=== PATIENT | female | born 1985 | race Caucasian/White ===

== ENCOUNTER 2017-09-05 07:48 | Inpatient (IN) ==
--- NOTE | 2017-09-05 07:06 | OB/GYN History & Physical ---
Date of Encounter: 09/05/17 Time of Encounter: 07:23 Assessment and Plan (1) 37 weeks gestation of Current visit: Yes Status: Acute (2) Spontaneous rupture of membranes Current visit: Yes Status: Acute Admit for expectant management, 6cm/90/-1. GBS unknown, negative by risk factors UDS Attempt to obtain records from [facility] labs. Anticipate precipitous vaginal delivery. (3) Active labor Current visit: Yes Status: Acute (4) care insufficient Current visit: Yes Status: Acute Qualifiers: Trimester: third trimester Qualified Code(s): O09.33 - Supervision of with insufficient care, third trimester (5) Opiate abuse, continuous Current visit: Yes Status: Acute History of Present Illness Chief complaint: contractions HPI: Ms. Villa is a 32 year old female presenting at 37w4d with c/o contractions that started at 0500 this am. She reports some leaking fluid since 0500 as well. She has had some care at [facility] but she hasn't been seen in about 2 months. She reports she did have an ultrasound and was told everything was normal and it's a girl. She denies being told that she has a placenta previa. She admits to subutex use that is prescribed. Last use of other substance was heroin 4 years ago. SHe reports Hepatitis C but no other medical problems, surgeries, sexually transmitted infections, tobacco use, or other substance abuse. Past Med Surg Social Fam HX - Past Medical History Medical history: seizures Psychiatric history: no psych history - Social History Smoking Status: Current every day smoker Smokeless Tobacco Status: No Alcohol use: none Drug use: none Obstetrical History - Pregnancies : 3 Para: 2 Livin - History/Complications History/Complications: Denies any or delivery complications, children are 7 and 9 Medications and Allergies Amoxicillin/Clavulanate [Augmentin] 875 mg PO BIDWM #14 tablet 07/26/16 [Rx] 3 Allergy/AdvReac Type Severity Reaction Status Date / Time No Known Allergies Allergy Verified 07/26/16 15:17 Review of System OB All systems PM: reviewed and no additional remarkable complaints except as stated Exam - Constitutional Constitutional: well developed, well nourished, severe distress, thin - HEENT HEENT: Mucus Membranes Moist - Lungs Respiratory exam: CTAB - Cardiovascular Cardiovascular exam: RRR - Abdomen Abdomen: Present: gravid, non tender - Extremities Extremities exam: normal inspection - Vulva Vulva: bilateral: normal - Cervix Dilation: 6 Effacement: 90 Station: -1 - Anus/Rectum Anus/Rectum: Present: normal perianal skin Results All other labs normal. - VTE Reasons for not Prescribing Prophylaxis: Treatment not Indicated - Low risk for VTE
[2017-09-05 07:14] LABS: Basophils # 0.1 K/mcL (0.0-0.2); Basophils % 0.3 %; Eosinophils # 0.2 K/mcL (0.0-0.6); Eosinophils % 0.9 %; Hematocrit 38.8 % (35.3-44.9); Hemoglobin 13.3 g/dL (11.5-15.4); Immature Granulocytes % 1.5 % (0-4); Lymphocytes # 2.2 K/mcL (0.6-4.6); Lymphocytes % 12.6 %; Mean Corpuscular HGB Conc 34.3 g/dL (31.6-35.5); Mean Corpuscular Hemoglobin 29.9 pg (28.0-33.3); Mean Corpuscular Volume 87.2 fL (83.0-100.0); Mean Platelet Volume 11.5 fL (9.4-12.4); Neutrophils # 13.6 K/mcL (1.6-8.9); Nucleated Red Blood Cells 0.2 /100 WBC (0); Platelet Count 252 K/mcL (140-400); Red Blood Count 4.45 M/mcL (3.82-4.97); Segmented Neutrophils % 78.7 %
[~2017-09-05 07:48] MED LIST: *HR* Oxytocin 10 UNIT/ML VIAL IM ONE; Famotidine 20 MG/2 ML VIAL IVP PRN; Lidocaine -MPF 1% 2 ML VIAL ONE; Metoclopramide 10 MG/2 ML VIAL IVP PRN; Naloxone 0.4 MG/ML INJ IVP PRN; Penicillin G Potassium 5,000,000 UNIT in 0.9 % Sodium Chloride Mini Bag 100 ML IVPB ONE; Ringers Solution, Lactated 1,000 ML IVC SCH
[2017-09-05 07:56] LABS: Amphetamine Screen,Urine Negative ng/mL (Cutoff=1000); Barbiturate Screen,Urine Negative ng/mL (Cutoff=200); Benzodiazepines Screen,Urine Negative ng/mL (Cutoff=200); Cannabinoid Screen,Urine Negative ng/mL (Cutoff = 50); Cocaine Screen,Urine Negative ng/mL (Cutoff= 300); Opiate Screen,Urine Negative ng/mL (Cutoff=300); Phencyclidine Screen,Urine Negative ng/mL (Cutoff=25)
[2017-09-05] MEDS ORDERED: Penicillin G Potassium 2,500,000 UNIT in D5% in Water 100 ML IVPB SCH ×2 (08:00→12:00)
[2017-09-05] MEDS ORDERED: Bupivacaine-MPF 0.25% 10 ML VIAL EP ONE (08:14)
[2017-09-05] MEDS ORDERED: EPHEDrine 50 MG/ML VIAL IVP PRN (08:14)
[2017-09-05] MEDS ORDERED: *HR* FentaNYL (PF) 100 MCG/2 ML VIAL EP ONE (08:14)
[2017-09-05] MEDS ORDERED: Ondansetron 4 MG/2 ML VIAL IVP PRN (08:14)
[2017-09-05] MEDS ORDERED: Naloxone 0.4 MG/ML INJ IVP PRN ×2 (08:14→13:15)
[2017-09-05] MEDS ORDERED: Epidural Premix (fent/bupiv) 110 ML EP SCH (08:15)
--- NOTE | 2017-09-05 08:19 | Anesthesia Evaluation PreOp ---
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 States she "doesn't have seizures during ".) Other Medical History: Other (Hx herpes, HEP C, Heroin use, subutex) Anesthesia History: No Prior Anesthetic Complications, Past Anesthesia (no past history of anesthesia, no family history of anesthesia complications.) : Yes Alcohol Use: none Drug use: none Medications and Allergies Amoxicillin/Clavulanate [Augmentin] 875 mg PO BIDWM #14 tablet 07/26/16 [Rx] 3 Allergy/AdvReac Type Severity Reaction Status Date / Time No Known Allergies Allergy Verified 07/26/16 15:17 - Meds/Allergy Pre-op Review Medications Reviewed: Yes Allergies Reviewed: Yes Beta Blockers on Current Med List: No Anesthesia Results - Labs 09/05/17 07:00 Anesthesia Exam BP 137/89 P 89 R 16 T 36.4 Height: 5'8" Weight: 79kg NPO (# of Hours): 9 Pain Scale: 10 Pain Scale Used: Numeric (1 - 10) - HEENT Pupil (Motor): Pupils equal Mallampati: II Teeth: Normal Oral Opening: Greater than 3 - COMPUTER TAPE LIBRARIAN LOC: Oriented COMPUTER TAPE LIBRARIAN Motor: Normal RUE, Normal LUE, Normal RLE, Normal LLE, Normal Face COMPUTER TAPE LIBRARIAN Sensory: Normal: RUE, LUE, RLE, LLE, Face - Cardiac Rhythm: Regular Murmur: None JVD: No Carotid Bruit: No - Pulmonary Breath Sounds: bilateral Clear Respiratory Effort: Symmetrical Anesthesia Assess/Plan ASA Score: 2 Modified Sancho Scale for Level of Consciousness: Cooperative, oriented, and tranquil Anesthetic Plan: Regional Autologous Blood: No Monitoring Plan: Standard Monitors Recovery Plan: Other
[2017-09-05 08:28] LABS: Alanine Aminotransferase 31 Units/L (7-52); BUN/Creatinine Ratio 15 (6-26); Blood Urea Nitrogen 11 mg/dL (6-20); Lactate Dehydrogenase 388 Units/L (140-271); Uric Acid 6.6 mg/dL (2.3-7.6); eGFR For African Americans > 60 (> 60); eGFR For Non-African Americans > 60 (> 60)
[2017-09-05] MEDS ORDERED: Epidural Premix (fent/bupiv) 110 ML EP ONE (08:29)
[2017-09-05] MEDS ORDERED: Bupivacaine-MPF 0.25% 10 ML VIAL ONE (08:29)
[2017-09-05] MEDS ORDERED: *HR* FentaNYL (PF) 100 MCG/2 ML VIAL ONE (08:30)
[2017-09-05 08:39] LABS: HIV-1&2 Antibody & p24 Ag Nonreactive (Nonreactive); Hepatitis B Surface Antigen Nonreactive (Nonreactive)
--- NOTE | 2017-09-05 09:36 | Anesthesia Procedures ---
Date of Encounter: 09/05/17 Time of Encounter: 09:34 Procedures: Anesthesia - Epidural/Spinal Patient ID/Chart reviewed: Yes Patient examined: Yes OB Eval: Gestational age: 39 OB Eval: : 3 OB Eval: Hx Para: 2 OB Eval: Dilated at (cm): 8 OB Eval: Contractions: Non-stressed pattern Consent Obtained: Yes Supplemental Oxygen: None/Room Air Site Prep: Aseptic Technique, Sterile prep and drape, Povidone-Iodine 1% Patient position: upright Local Anesthetic: Lidocaine 1% Amount of Local Anesthetic used: 3 Touhy Needle Gauge: 18 Touhy Needle Depth (cm): 6 Catheter Depth at Skin (cm): 15 Test Dose (1.5% Lido + Epi): Volume given (mls): 3 Test Dose Result: Negative Loading Dose: 0.25% Marcaine (mls): 10 Loading Dose: Fentanyl (mcg): 100 Loading Dose Administered: Thru Catheter Infusion Med: 0.125% Bupivacaine w/ 2 mcg/ml Fentanyl Infusion Rate (mls/hr): 15 Interspace Used: L4-L5 Loss of Resistance (PRATEEK): Yes Blood: No CSF: No Paresthesia: No Procedure: SAJAN placed in upright position 1st pass without any immediate noted complications. VSS Vitals + FHT's: 0916 BP 134/82 P 81 R22 0928 BP 130/82 P 67 R 18 - Nerve Block Allergies/Adv Reactions: NKA Checklist: Correct Patient Identifier, Correct procedure, History checked
[2017-09-05] MEDS ORDERED: Oxytocin 20 units/ LR 1000 mL 20 UNIT/1,000 ML BAG IVC ONE (10:41)
[2017-09-05 10:58] LABS: Varicella Zoster IgG Antibody Positive
[2017-09-05 10:59] LABS: Rubella IgG Antibody POSITIVE (POSITIVE)
--- NOTE | 2017-09-05 11:03 | OB/GYN Procedure Note ---
Delivery - Delivery Date: 09/05/17 Provider: Apple Stewart (Luis Adan DO, PGY-1) Intrapartum events: meconium (terminal) Delivery induction: none Delivery monitor: external FHT, external uterine Anesthesia: epidural Estimated Blood Loss: 250 - Infant (s) A Infant Delivery Date: 09/05/17 Infant Delivery Time: 10:36 Presentation: vertex Position: KELSIE Route of delivery: Gender: Female Viability: Viable Weight Gram: 2.98 kg at 1 minute: 8 at 5 mins: 9 Shoulder Dystocia: not encountered Specimens collected: cord blood Placenta: spontaneous - Repair Episiotomy: none Laceration Description: Periurethral (hemostatic) - Complications Delivery complications: meconium (terminal meconium) Delivery comments: of vigorous viable female infant in the KELSIE position at 1036. Right compound hand during delivery, but no complications delivering shoulders. No nuchal cord. No shoulder dystocia. Terminal meconium. Infant placed on mom's abdomen. Apgars 8/9 at 1 and 5 minutes. Cord double clamped and cut after pulsations ceased. Placenta delivered spontaneously at 1041 appears grossly intact. 3 vessel cord. Upon peritoneal inspection, hemostatic periurethral lacerations present. Pericare instructions given to patient. Fundus firm. EBL 250ml. Infant delivery by Luis Adan DO PGY-1 and Apple Stewart CN. Infant and mother stable in recovery. Dr Meraz notified of delivery. - Disposition Mom disposition: stable in LDR [place] disposition: stable in LDR
[2017-09-05] MEDS ORDERED: Ibuprofen 600 MG TABLET PO PRN (13:15)
[2017-09-05] MEDS ORDERED: Oxytocin 20 units/ LR 1000 mL 20 UNIT/1,000 ML BAG IVC SCH (13:15)
[2017-09-05] MEDS ORDERED: Acetaminophen 325 MG TABLET PO PRN (13:15)
[2017-09-05] MEDS ORDERED: Rho Immune Globulin 1,500 UNIT SYRINGE IM PRN (13:15)
[2017-09-05] MEDS ORDERED: Measles/Mumps/Rubella Vacc 0.5 ML VIAL SQ PRN (13:15)
--- NOTE | 2017-09-05 15:02 | Event Note ---
Date of Encounter: 09/05/17 Time of Encounter: 14:59 Reviewed OARRS. Spoke with Chance at [facility] in [place] to verify that patient has a Rxs for Buprenorphine 8 mg Tablet SL 3 times daily and Clonazepam 1 mg BID. Elke Stewart CNM
[2017-09-05] MEDS ORDERED: clonazePAM 0.5 MG TABLET PO PRN (19:44)
[2017-09-05] MEDS: *HR* Buprenorphine HCl 8 MG TAB.SUBL SL SCH (20:39)
[2017-09-06 06:57] LABS: Basophils % 0.2 %; Eosinophils # 0.1 K/mcL (0.0-0.6); Eosinophils % 0.3 %; Hematocrit 32.8 % (35.3-44.9); Immature Granulocytes % 1.8 % (0-4); Lymphocytes % 14.9 %; Mean Corpuscular HGB Conc 33.5 g/dL (31.6-35.5); Mean Corpuscular Hemoglobin 29.9 pg (28.0-33.3); Mean Corpuscular Volume 89.1 fL (83.0-100.0); Monocytes # 1.2 K/mcL (0.0-1.3); Monocytes % 6.1 %; Neutrophils # 15.3 K/mcL (1.6-8.9); Nucleated Red Blood Cells 0.1 /100 WBC (0); Platelet Count 206 K/mcL (140-400); Red Blood Count 3.68 M/mcL (3.82-4.97); Red Cell Distribution Width 13.9 % (11.5-14.5); Segmented Neutrophils % 76.7 %
[2017-09-06] MEDS: *HR* Buprenorphine HCl 8 MG TAB.SUBL SL SCH ×3 (08:28→20:02)
[2017-09-06] MEDS ORDERED: Prenatal Vit/FA 1 EACH TABLET PO SCH (09:00)
--- NOTE | 2017-09-06 09:03 | Discharge Summary ---
Date of Encounter: 09/06/17 Time of Encounter: 09:10 - Discharge Diagnosis (1) Vaginal delivery Priority: Secondary Status: Acute (2) 37 weeks gestation of Priority: Primary Status: Acute (3) care insufficient Priority: Secondary Status: Acute Qualifiers: Trimester: third trimester Qualified Code(s): O09.33 - Supervision of with insufficient care, third trimester (4) Opiate abuse, continuous Priority: Secondary Status: Acute (5) anemia Priority: Secondary Status: Acute - Discharge Medications Prescriptions: Acetaminophen [Tylenol] 650 mg PO Q6HR PRN #40 tablet PRN Reason: Mild Pain Ibuprofen [Motrin] 600 mg PO Q6HR PRN #40 tablet PRN Reason: Cramping Docusate [Colace] 100 mg PO BID PRN 10 Days #10 capsule PRN Reason: Constipation Home Medications: Amoxicillin/Clavulanate [Augmentin] 875 mg PO BIDWM #14 tablet 07/26/16 [Rx] Acetaminophen [Tylenol] 650 mg PO Q6HR PRN #40 tablet 09/06/17 [Rx] Buprenorphine HCl [Subutex] 8 mg SL TID tab.subl 09/06/17 [Rx] Docusate [Colace] 100 mg PO BID PRN 10 Days #10 capsule 09/06/17 [Rx] Ibuprofen [Motrin] 600 mg PO Q6HR PRN #40 tablet 09/06/17 [Rx] Vit/FA 1 each PO DAILY tablet 09/06/17 [Rx] clonazePAM [Klonopin] 1 mg PO BID PRN tablet 09/06/17 [Rx] Allergies/Adverse Reactions: 3 Allergy/AdvReac Type Severity Reaction Status Date / Time No Known Allergies Allergy Verified 07/26/16 15:17 Data Procedures and tests throughout hospitalization: Laboratory Tests 09/05/17 09/05/17 09/05/17 07:00 07:00 07:37 WBC 17.3 H RBC 4.45 Hgb 13.3 Hct 38.8 MCV 87.2 MCH 29.9 MCHC 34.3 RDW 14.0 Plt Count 252 MPV 11.5 Immature Gran % 1.5 Seg Neutrophils % 78.7 Lymphocytes % 12.6 Monocytes % 6.0 Eosinophils % 0.9 Basophils % 0.3 Neutrophils # 13.6 H Lymphocytes # 2.2 Monocytes # 1.0 Eosinophils # 0.2 Basophils # 0.1 Nucleated RBCs/100 WBC 0.2 H BUN 11 Creatinine 0.72 Est GFR ( Amer) > 60 Est GFR (Non-Af Amer) > 60 BUN/Creatinine Ratio 15 Uric Acid 6.6 ALT 31 Lactate Dehydrogenase 388 H Urine Opiates Screen Negative Ur Barbiturates Screen Negative Ur Phencyclidine Scrn Negative Ur Amphetamines Screen Negative U Benzodiazepines Scrn Negative Urine Cocaine Screen Negative U Marijuana (THC) Screen Negative T.pallidum Ab Interpret Chlam trachomat DNA PCR Hep Bs Antigen HIV Ag/Ab Combo Qual Rubella IgG Antibody VZV IgG Antibody Blood Type Antibody Screen 09/05/17 09/05/17 09/05/17 07:37 07:40 07:40 WBC RBC Hgb Hct MCV MCH MCHC RDW Plt Count MPV Immature Gran % Seg Neutrophils % Lymphocytes % Monocytes % Eosinophils % Basophils % Neutrophils # Lymphocytes # Monocytes # Eosinophils # Basophils # Nucleated RBCs/100 WBC BUN Creatinine Est GFR ( Amer) Est GFR (Non-Af Amer) BUN/Creatinine Ratio Uric Acid ALT Lactate Dehydrogenase Urine Opiates Screen Ur Barbiturates Screen Ur Phencyclidine Scrn Ur Amphetamines Screen U Benzodiazepines Scrn Urine Cocaine Screen U Marijuana (THC) Screen T.pallidum Ab Interpret Negative Chlam trachomat DNA PCR NOT DETECTED Hep Bs Antigen Nonreactive HIV Ag/Ab Combo Qual Nonreactive Rubella IgG Antibody POSITIVE VZV IgG Antibody Positive Blood Type Antibody Screen 09/05/17 09/06/17 07:40 06:07 WBC 20.0 H RBC 3.68 L Hgb 11.0 L D Hct 32.8 L MCV 89.1 MCH 29.9 MCHC 33.5 RDW 13.9 Plt Count 206 MPV 12.0 Immature Gran % 1.8 Seg Neutrophils % 76.7 Lymphocytes % 14.9 Monocytes % 6.1 Eosinophils % 0.3 Basophils % 0.2 Neutrophils # 15.3 H Lymphocytes # 3.0 Monocytes # 1.2 Eosinophils # 0.1 Basophils # 0.0 Nucleated RBCs/100 WBC 0.1 H BUN Creatinine Est GFR ( Amer) Est GFR (Non-Af Amer) BUN/Creatinine Ratio Uric Acid ALT Lactate Dehydrogenase Urine Opiates Screen Ur Barbiturates Screen Ur Phencyclidine Scrn Ur Amphetamines Screen U Benzodiazepines Scrn Urine Cocaine Screen U Marijuana (THC) Screen T.pallidum Ab Interpret Chlam trachomat DNA PCR Hep Bs Antigen HIV Ag/Ab Combo Qual Rubella IgG Antibody VZV IgG Antibody Blood Type A POSITIVE Antibody Screen NEGATIVE Labs on day of discharge: Labs from last 24 hours 09/06/17 09/05/17 09/05/17 06:07 07:40 07:40 WBC 20.0 H RBC 3.68 L Hgb 11.0 L D Hct 32.8 L MCV 89.1 MCH 29.9 MCHC 33.5 RDW 13.9 Plt Count 206 MPV 12.0 Immature Gran % 1.8 Seg Neutrophils % 76.7 Lymphocytes % 14.9 Monocytes % 6.1 Eosinophils % 0.3 Basophils % 0.2 Neutrophils # 15.3 H Lymphocytes # 3.0 Monocytes # 1.2 Eosinophils # 0.1 Basophils # 0.0 Nucleated RBCs/100 WBC 0.1 H T.pallidum Ab Interpret Negative Chlam trachomat DNA PCR Rubella IgG Antibody POSITIVE VZV IgG Antibody Positive Blood Type A POSITIVE Antibody Screen NEGATIVE 09/05/17 07:37 WBC RBC Hgb Hct MCV MCH MCHC RDW Plt Count MPV Immature Gran % Seg Neutrophils % Lymphocytes % Monocytes % Eosinophils % Basophils % Neutrophils # Lymphocytes # Monocytes # Eosinophils # Basophils # Nucleated RBCs/100 WBC T.pallidum Ab Interpret Chlam trachomat DNA PCR NOT DETECTED Rubella IgG Antibody VZV IgG Antibody Blood Type Antibody Screen Date of admission: 09/05/17 07:50 Primary care physician: Dr. Velazco Consults: 09/05/17 13:15 Consult to Administrative Office Assistant [CONS] Routine Comment: Vaginal delivery, consult needed Consult to Small Order Cutter [CONS] Routine Reason for SW Consult: subutex use and community resources Discharging clinician: Simon Velazco Anticipated date of discharge: 09/06/17 - Patient Status Disposition: Home, Self-Care Condition: Good Functional capacity at discharge: independent ambulation Overall status at discharge: patient is progressing back to baseline - Discharge Instructions Follow Up With: Apple Stewart CNM [Advanced Practice Nurse] - - Diet and Activity Activity: increase activity as tolerated Diet: advance to your usual diet Hospital Course Reason for admission: active labor Delivery: Episiotomy: none Laceration: other (superficial hemostatic periurethral ) Other procedures: none complications: none Discharge diagnosis: IUP at term delivered baby: female Hospital course: Date: 09/05/17 Provider: Apple Stewart (Luis Adan DO, PGY-1) Intrapartum events: meconium (terminal) Delivery induction: none Delivery monitor: external FHT, external uterine Anesthesia: epidural Estimated Blood Loss: 250 - Infant (s) Infant A Infant Delivery Date: 09/05/17 Infant Delivery Time: 10:36 Presentation: vertex Position: KELSIE Route of delivery: Gender: Female Viability: Viable Weight Gram: 2.98 kg at 1 minute: 8 at 5 mins: 9 Shoulder Dystocia: not encountered Specimens collected: cord blood Placenta: spontaneous - Repair Episiotomy: none Laceration Description: Periurethral (hemostatic) - Complications Delivery complications: meconium (terminal meconium) Delivery comments: of vigorous viable female in the KELSIE position at 1036. Right compound hand during delivery, but no complications delivering shoulders. No nuchal cord. No shoulder dystocia. Terminal meconium. Infant placed on mom's abdomen. Apgars 8/9 at 1 and 5 minutes. Cord double clamped and cut after pulsations ceased. Placenta delivered spontaneously at 1041 appears grossly intact. 3 vessel cord. Upon peritoneal inspection, hemostatic periurethral lacerations present. Pericare instructions given to patient. Fundus firm. EBL 250ml. delivery by Luis Adan DO PGY-1 and Apple Stewart CNM. Infant and mother stable in recovery. Dr Meraz notified of delivery. - Disposition Mom disposition: stable in LDR [place] disposition: stable in LDR Time Attestation: Total time spent providing and/or coordinating discharge services: Exam - Constitutional Vitals: Temp Pulse Resp BP Pulse Ox 97.4 F L 53 16 127/81 99 09/06/17 08:30 09/06/17 08:30 09/06/17 08:30 09/06/17 08:30 09/06/17 08:30 General appearance IM: pleasant, no acute distress - Respiratory Respiratory exam: Present: CTAB - Cardiovascular Cardiovascular exam IM: Present: RRR - GI/Abdominal GI/Abdominal exam IM: hypoactive bowel sounds - Uterus Position: 2 Fingers Below Umbilicus - Extremities Exam Extremities exam IM: Present: pedal edema - Neurological Exam Neurological exam: alert, no focal deficits - Attending Attestation I examined this patient and my medical decision-making was reviewed with the Resident Physician. I agree with the documented findings, disposition and treatment plan as described except to the extent set forth below. Fariba Velazco MD
[2017-09-06 23:01] VITALS: BP 131/83
== END 2017-09-06 22:55 | disposition home or self-care (01) | DRG 560 ==
LOC: 1NENULAB → 1NENUOBS 13:14
PROVIDERS: ADMIT Registered Nurse; ATTEND Registered Nurse